=== PATIENT | male | born 1955 | race Caucasian/White ===

== ENCOUNTER 2021-08-04 13:04 | Outpatient (CLI) | payer MEDICARE, OTHER | END 2021-08-04 13:05 | disposition home or self-care (01) | LOC: BICCT 13:04 → CT 13:05 | PROVIDERS: ATTEND Internal Medicine Hematology & Oncology | DX: D68.51 Activated protein C resistance (principal); I81 Portal vein thrombosis; K55.059 Acute (reversible) ischemia of intestine, part and extent unspecified | CPT/HCPCS: 74177; 82565 ==

== ENCOUNTER 2022-06-30 20:05 | Emergency (ER) | payer MEDICARE, OTHER ==
[2022-06-30 21:09] LABS: Hemoglobin 12.7 g/dL (14.0-18.0); Mean Corpuscular HGB CONC 34.5 g/dL (32.0-36.0); Mean Corpuscular Hemoglobin 32.2 pg (27.0-31.0); Mean Corpuscular Volume 93.5 fl (78.0-98.0); Mean Platelet Volume 9.5 fL (7.4-10.4); Platelet Count 100 10x3/uL (130-400); Red Blood Cell (RBC) Count 3.94 mill/uL (4.70-6.10); White Blood Cell (WBC) Count 14.6 10x3/uL (4.8-10.8)
[2022-06-30 21:27] LABS: Anisocytosis SLIGHT = 6-15 cells (100X) (0-5/hpf); Band 1 % (5-11); Lymphocytes 16 % (21-51); MDiff Complete? YES; Monocytes 9 % (0-10); Neutrophil 74 % (42-75); Ovalocytes SLIGHT = 2-5 cells (100X) (0-1/hpf); Platelet Morphology Comment Appears Decreased; Polychromasia SLIGHT = 2-3 cells (100X) (0-2/hpf)
[2022-06-30 21:33] LABS: ALT (SGPT) 30 U/L (8-55); AST (SGOT) 24 U/L (5-34); Albumin 3.6 g/dL (3.4-4.8); Alkaline Phosphatase 72 U/L (40-110); Anion Gap 14 mmol/L (10-20); BUN (Urea Nitrogen) 13 mg/dL (8.4-25.7); Bilirubin, Total 1.1 mg/dL (0.2-1.2); Calc. Creatinine Clearance 0 mL/min (70-130); Calcium 8.8 mg/dL (7.8-10.44); Carbon Dioxide 19 mmol/L (23-31); Chloride 102 mmol/L (98-107); Estimated GFR 78; Globulin 4.6 g/dL (2.4-3.5); Glucose 124 mg/dL (80-115); Protein, Total 8.2 g/dL (5.8-8.1); Sodium 131 mmol/L (136-145)
== END 2022-06-30 22:37 | disposition home or self-care (01) ==
LOC: ERS 20:05
DX: U07.1 COVID-19 (principal)
CPT/HCPCS: 71045; 80053; 85025; 93005; 96360

== ENCOUNTER 2022-07-03 17:07 | Emergency (ER) | payer MEDICARE ==
[2022-07-03 20:13] LABS: Hemoglobin 11.7 g/dL (14.0-18.0); Mean Corpuscular HGB CONC 34.4 g/dL (32.0-36.0); Mean Corpuscular Hemoglobin 31.9 pg (27.0-31.0); Mean Corpuscular Volume 92.7 fl (78.0-98.0); Mean Platelet Volume 9.7 fL (7.4-10.4); Platelet Count 104 10x3/uL (130-400); Red Blood Cell (RBC) Count 3.69 mill/uL (4.70-6.10); White Blood Cell (WBC) Count 9.5 10x3/uL (4.8-10.8)
[2022-07-03 21:07] LABS: Anisocytosis SLIGHT = 6-15 cells (100X) (0-5/hpf); Burr Cells SLIGHT = 2-5 cells (100X) (0-1/hpf); Eosinophils 2 % (0-10); Lymphocytes 25 % (21-51); MDiff Complete? YES; Monocytes 10 % (0-10); Neutrophil 63 % (42-75); Platelet Morphology Comment Appears Decreased
== END 2022-07-03 20:37 | disposition home or self-care (01) ==
LOC: ERS 17:07
DX: R04.0 Epistaxis (principal)
CPT/HCPCS: 36415; 85025; 99283

== ENCOUNTER 2024-06-19 16:07 | Emergency (ER) | payer MEDICARE, OTHER ==
[2024-06-19] MEDS ORDERED: Tranexamic Acid 1,000 MG/10 ML VIAL ONE (17:04)
== END 2024-06-19 17:36 | disposition home or self-care (01) ==
LOC: ERS 16:07
DX: R04.0 Epistaxis (principal)
CPT/HCPCS: 99282